=== PATIENT | female | born 1960 | race Two or more races ===

== ENCOUNTER 2018-07-07 06:10 | Day surgery (SDC) | payer OTHER ==
[~2018-07-07] VITALS: Ht 162.6 cm; Wt 75.7 kg
[2018-07-07] VITALS (8 sets, daily range): BP systolic 133–159; BP diastolic 70–84
[~2018-07-07 06:10] MED LIST: Akten 3.5% 1ml Btl ONE; Flurbiprofen 0.03% Opth Sol 2.5ml ONE; Phenylephrine 2.5% Op 2ml Soln ONE; Tobradex Opth Susp 2.5ml ONE; Tropicamide 1% Opth 15ml Soln ONE; Vigamox Opth Soln 3ml ONE
[2018-07-07] MEDS: Tobradex Opth Susp 2.5ml LEFT EYE SCH ×3 (06:32→06:54)
[2018-07-07] MEDS: Phenylephrine 2.5% Op 2ml Soln LEFT EYE SCH ×3 (06:32→06:54)
[2018-07-07] MEDS: Vigamox Opth Soln 3ml LEFT EYE SCH ×3 (06:32→06:54)
[2018-07-07] MEDS: Akten 3.5% 1ml Btl LEFT EYE SCH ×3 (06:33→06:54)
[2018-07-07] MEDS: Flurbiprofen 0.03% Opth Sol 2.5ml LEFT EYE SCH ×3 (06:33→06:54)
[2018-07-07] MEDS: Tropicamide 1% Opth 15ml Soln LEFT EYE SCH ×3 (06:33→06:54)
[2018-07-07] MEDS ORDERED: NKM (06:51)
[2018-07-07] MEDS ORDERED: Lidocaine 1% MPF 10mg/ml 5ml ONE (07:05)
[2018-07-07] MEDS ORDERED: EPINEPHrine 1mg/1ml Amp ONE (07:05)
[2018-07-07] MEDS ORDERED: Dexamethasone 4mg/ml vial ONE (07:06)
[2018-07-07] MEDS ORDERED: Povidone-Iodine 5% opth solution ONE (07:06)
[2018-07-07] MEDS ORDERED: BSS 15ml BTL ONE (07:06)
[2018-07-07] MEDS ORDERED: BSS 500ml btl ONE (07:06)
[2018-07-07] MEDS ORDERED: Carbachol 0.01% Op Soln 1.5ml vial ONE (07:06)
--- NOTE | 2018-07-07 07:17 | Anethesia Preoperative Eval ---
Anesthesia Pre-op PMH/ROS General Date of Evaluation: Jul 07, 2018 Time of Evaluation: 07:16 Anesthesiologist: Leonarda Ardon CRNA ASA Score: ASA 2 Mallampati Score Class I : Soft palate, uvula, fauces, pillars visible Class II: Soft palate, uvula, fauces visible Class III: Soft palate, base of uvula visible Class IV: Only hard plate visible Mallampati Classification: Class II Surgeon: Kam Diagnosis: LEFT eye cataract Surgical Procedure: LEFT eye cataract extraction with IOL Anesthesia History: none Family History: no anesthesia problems Allergies: Coded Allergies: No Known Allergies (Unverified , 07/06/18) Medications: see eMAR Patient NPO?: Yes NPO Date: Jul 07, 2018 NPO Time: 00:00 Past Medical History Cardiovascular: Denies: HTN, CAD, GA, valve dz, arrhythmia, other Pulmonary: Denies: asthma, COPD, CONNOR, other Gastrointestinal/Genitourinary: Denies: GERD, CRI, ESRD, other Neurologic/Psychiatric: Reports: depression/anxiety; Denies: dementia, CVA, TIA, other Endocrine: Reports: hypothyroidism; Denies: DM, steroids, other HEENT: Reports: cataract (L), cataract (R); Denies: glaucoma, [place] (L), [place] (R), other Hematology/Immune: Denies: anemia, DVT, bleeding disorder, other Musculoskeletal/Integumentary: Denies: OA, RA, DJD, DDD, edema, other PMH Narrative: As above PSxH Narrative: C/S' RIGHT cataract, JYOTHI BSO Anesthesia Pre-op Phys. Exam Physician Exam Last Vital Signs Date Time Temp Pulse Resp B/P (MAP) Pulse Ox O2 Delivery O2 Flow Rate FiO2 07/07/18 06:51 Room Air 07/07/18 06:45 98.4 73 18 159/84 97 Constitutional: NAD Neurologic: CN 2-12 intact Cardiovascular: RRR Respiratory: CTA Gastrointestinal: S/NT/ND Airway Exam Mallampati Score: Class II MO: full Neck: no limitations TMD: > 3 FB ROM: full Teeth: intact Dentures: no upper, no lower Anesthesia Pre-op A/P Risk Assessment & Plan Assessment: ASA 2, ok to proceed Plan: MAC Status Change Before Surgery: No Pre-Antibiotics Given Within 1 Hr of Incision: No Leonarda Ardon CRNA Jul 07, 2018 07:17
[2018-07-07] MEDS ORDERED: Midazolam 2mg/2ml Inj ONE (07:19)
[2018-07-07] MEDS ORDERED: Propofol 200mg/20ml IV ONE (07:19)
[2018-07-07] MEDS ORDERED: fentaNYL 100 mcg/2 mL IV ONE (07:19)
--- NOTE | 2018-07-07 07:40 | Pre-Procedure Note/Attestation ---
Pre-Procedure Note/Attestation Complete Prior to Procedure Planned Procedure: left Procedure Narrative: cataract extraction with implant left eye Indications for Procedure Pre-Operative Diagnosis: cataract left eye Attestation I attest that I discussed the nature of the procedure; its benefits; risks and complications; and alternatives (and the risks and benefits of such alternatives ), prior to the procedure, with the patient (or the patient's legal novelties sales representative). I attest that, if there was a reasonable possibility of needing a blood transfusion, the patient (or the patient's legal novelties sales representative) was given the [facility] standardized written summary, pursuant to the Jaden Eric Blood Safety Act ([place] Health and Safety Code # 1645, as amended). I attest that I re-evaluated the patient just prior to the surgery and that there has been no change in the patient's H&P, except as documented below: Efren Humphrey MD Jul 07, 2018 07:40
[2018-07-07] MEDS ORDERED: Sodium Hyaluronate 14 mg/ml 0.85ml ONE (07:44)
--- NOTE | 2018-07-07 08:14 | Brief Operative Note ---
Immediate Post Operative Note Operative Note Pre-op Diagnosis: cataract left eye Procedure: phacoemulsification of cataract with implant left eye Post-op Diagnosis: same as pre-op Surgeon: efren hutchinson Gate Attendant: none Anesthesiologist: pablo carver crna Anesthesia: MAC Specimen: none Complications: none Condition: stable Fluids: none Estimated Blood Loss: none Drains: none Implant(s) used?: Yes Efren Hutchinson MD Jul 07, 2018 08:14
[2018-07-07] MEDS ORDERED: DiphenhydrAMINE 50mg/ml Inj IVP PRN (08:15)
--- NOTE | 2018-07-07 08:21 | Immediate Post-Op Evaluation ---
Immediate Post-Op Evalulation Immediate Post-Op Evalulation Procedure: LEFT eye cataract extraction with IOL Date of Evaluation: Jul 07, 2018 Time of Evaluation: 08:14 IV Fluids: LR 400 ml Blood Pressure Systolic: 150 Blood Pressure Diastolic: 75 Pulse Rate: 65 Respiratory Rate: 22 O2 Sat by Pulse Oximetry: 99 Temperature (Fahrenheit): 97.5 Pain Score (1-10): 0 Nausea: No Vomiting: No Complications none Patient Status: awake, reacts, patent Hydration Status: adequate Given Within 1 Hr of Incision: Leonarda Huertas CRNA Jul 07, 2018 08:21
--- NOTE | 2018-07-07 10:42 | 48 Hour Post Anesthesia Eval ---
Post Anesthesia Evaluation Procedure: LEFT eye cataract extraction with IOL Date of Evaluation: Jul 07, 2018 Time of Evaluation: 10:41 Blood Pressure Systolic: 136 0: 71 Pulse Rate: 62 Respiratory Rate: 20 Temperature (Fahrenheit): 98 O2 Sat by Pulse Oximetry: 98 Nausea: No Vomiting: No Pain Intensity: 0 Hydration Status: adequate Cardiopulmonary Status: stable Follow-up Care/Observations: Per opthamology Post-Anesthesia Complications: none Leonarda Ardon CRNA Jul 07, 2018 10:42
--- NOTE | 2018-07-07 20:15 | Operative Note - Dictated ---
DATE OF OPERATION: 07/07/2018 PREOPERATIVE DIAGNOSIS: Cataract, left eye. POSTOPERATIVE DIAGNOSIS: Cataract, left eye. PROCEDURE: Phacoemulsification of cataract, left eye with placement of posterior chamber intraocular lens. SURGEON: Efren Humphrey M.D. MEDICAL BILLING MANAGER: None. ANESTHESIA: MAC/topical. ANESTHESIOLOGIST: . INDICATION FOR PROCEDURE: Poor vision, left eye. DESCRIPTION OF FINDINGS: Nuclear sclerotic cataract, left eye. DESCRIPTION OF PROCEDURE: The patient received a topical anesthetic block consisting of 3.5% Akten eye drops. The eye was prepped and draped in the usual manner. A lid speculum was placed. An operating Zeiss microscope was positioned. The temporal corneal groove was made with the elsa blade. A SuperSharp blade made a stab incision at the 6 o'clock position. A 0.1 mL of 1% nonpreserved intracameral lidocaine was injected. Healon was instilled into the anterior chamber and a 2.5/2.8 mm trapezoidal elsa blade was used to complete the temporal corneal wound. A cystotome was used to create an anterior capsular flap. Utrata forceps were used to complete the capsulorrhexis. BSS on a cannula was used to hydrodissect the nucleus. The lens nucleus phacoemulsified in a phaco-fracture technique. Remaining cortical material was removed with the I/A and the posterior capsule was polished with the I/A on Cap vac. Healon was instilled in the capsular bag and the anterior chamber and an Alexis foldable one-piece posterior chamber intraocular lens, model ZCB00, power 9.0 diopter, serial number [id number] is placed in the injector. The lens was put in the capsular bag. The I/A tip was used to remove the Healon and position the lens. The wound edge was hydrated with BSS and a blunt-tipped cannula. The wound was checked and found to be watertight. The lid speculum was removed and a drop of TobraDex and Vigamox was placed. A clear plastic shield was taped over the eye. The patient tolerated the procedure well and left the operating room in good condition. Efren Humphrey M.D. ([facility] [place]: JODY JOB#: [id number] CC:
== END 2018-07-07 09:20 | disposition home or self-care (01) ==
LOC: SUR 06:10
DX: H25.12 Age-related nuclear cataract, left eye (principal); E03.9 Hypothyroidism, unspecified; R73.03 Prediabetes; K64.9 Unspecified hemorrhoids; Z90.710 Acquired absence of both cervix and uterus; Z90.79 Acquired absence of other genital organ(s); Z90.722 Acquired absence of ovaries, bilateral
CPT/HCPCS: 66984; J0171; J1100; J2250; J2704; J3010; V2632; 94003; 94150